=== PATIENT | female | born 1990 | race Caucasian/White ===

== ENCOUNTER 2020-06-09 06:04 | Day surgery (SDC) | payer BC, MEDICAID ==
[~2020-06-09] VITALS: Ht 167.6 cm; Wt 73.5 kg
[~2020-06-09 06:04] MED LIST: HYDROCODONE-APA1 TAB PO; TESTERONE
[2020-06-09 06:38] LABS: HEMATOCRIT 50.2 % (36.0-48.0); HEMOGLOBIN 17.2 g/dL (12-16); MCH 30.9 pg (26.0-34.0); MCHC 34.3 g/dL (31.0-37.0); MCV 90.1 fL (80.0-100.0); RBC 5.57 10x6/uL (4.00-5.40); RDW 14.5 % (11.5-14.5); WBC 14.2 10x3/uL (4.8-10.8)
[2020-06-09 07:05] LABS: HCG SERUM NEGATIVE (NEGATIVE)
[2020-06-09 07:06] VITALS: BP 125/78; Ht 167.6 cm; Wt 73.5 kg
--- NOTE | 2020-06-09 07:45 | NUR ---
NOTIFIED DR BOO OF PT'S WBC COUNT. NO NEW ORDERS RECEIVED.
--- NOTE | 2020-06-09 10:41 | NUR ---
DEMEROL 25MG GIVEN FOR SHIVERING
== END 2020-06-09 12:38 | disposition home or self-care (01) ==
LOC: D.OPS 06:04
PROVIDERS: Anesthesiology; ATTEND Obstetrics & Gynecology Maternal & Fetal Medicine
DX: R10.2 Pelvic and perineal pain (principal); N83.209 Unspecified ovarian cyst, unspecified side; N94.6 Dysmenorrhea, unspecified